=== PATIENT | female | born 1960 | race Hispanic/Latino ===

== ENCOUNTER → 2017-09-16 | Outpatient (CLI) | payer OTHER ==
[~2017-09-16] MED LIST: ASPI-555 PO; FISH1CAP49 PO; LEVO150T11 PO; VITAMIN D2 PO
== END | disposition home or self-care (01) ==
LOC: EDBD → RAH 09:37
PROVIDERS: ATTEND Physician Assistant Medical
DX: K83.8 Other specified diseases of biliary tract (principal); R94.5 Abnormal results of liver function studies; Z90.49 Acquired absence of other specified parts of digestive tract
CPT/HCPCS: 76705

== ENCOUNTER 2017-12-05 09:54 | Day surgery (SDC) | payer OTHER ==
[~2017-12-05] VITALS: Ht 152.4 cm; Wt 73.5 kg
[~2017-12-05 09:54] MED LIST changes: +SODIUM CHLORIDE 0.9% 1000ML 1,000 ML IV ONE; -VITAMIN D2 PO
[2017-12-05 10:12] VITALS: BP 143/79
[2017-12-05] MEDS ORDERED: VITAMIN D2 PO (11:00)
[2017-12-05] MEDS ORDERED: PROPOFOL 10 MG/ML 20ML VIAL IV ONE ×2 (12:21)
[2017-12-05] MEDS ORDERED: LIDOCAINE HCL 2% 20ML ONE (12:21)
[2017-12-05 12:32] VITALS: BP 107/64
== END 2017-12-05 13:13 | disposition home or self-care (01) ==
LOC: DAH 09:54 → ENDO 09:54
PROVIDERS: ATTEND Internal Medicine Gastroenterology
DX: K83.8 Other specified diseases of biliary tract (principal); R94.5 Abnormal results of liver function studies; E03.8 Other specified hypothyroidism; Z79.82 Long term (current) use of aspirin; Z79.899 Other long term (current) drug therapy
CPT/HCPCS: 43237; A4606; J2704 ×2; J3490; J7030; 43231

== ENCOUNTER → 2020-06-06 | Outpatient (CLI) | payer OTHER ==
[~2020-06-06] MED LIST changes: -ASPI-555 PO; +ASPI-556 PO; -SODIUM CHLORIDE 0.9% 1000ML 1,000 ML IV ONE; +VITAMIN D2 PO
== END | disposition home or self-care (01) ==
LOC: RAH 09:43
PROVIDERS: ATTEND Internal Medicine Gastroenterology
DX: R94.5 Abnormal results of liver function studies (principal); Z90.49 Acquired absence of other specified parts of digestive tract
CPT/HCPCS: 76700

== ENCOUNTER → 2025-01-05 | Outpatient (CLI) | payer OTHER, MEDICAID ==
--- NOTE | 2025-01-05 09:51 | HMCIMG ---
BONE DENSITOMETRY: HISTORY: AGE-RELATED OSTEOPOROSIS W/O CURRENT PATHOLOGICAL FRACTURE Comparison: none FINDINGS: BMD measured at AP spine L1-L4 is 0.900 g/cm2 with a T-score of -1.3 Bone density is between 10 and 25% below young normal. This patient is considered osteopenic. Fracture risk is moderate. BMD measured at Left Femoral Neck is 0.594 g/cm2 with a T-score of -2.4 Bone density is between 10 and 25% below young normal. This patient is considered osteopenic. Fracture risk is moderate. BMD measured at Left Femoral Total is 0.776 g/cm2 with a T-score of -1.4 Bone density is between 10 and 25% below young normal. This patient is considered osteopenic. Fracture risk is moderate. IMPRESSION: Osteopenia. Treatment and follow-up recommended.
== END | disposition home or self-care (01) ==
LOC: RAH 08:37
PROVIDERS: ATTEND Internal Medicine
DX: M85.89 Other specified disorders of bone density and structure, multiple sites (principal); M81.0 Age-related osteoporosis without current pathological fracture
CPT/HCPCS: 77080